=== PATIENT | male | born 1945 | race Hispanic/Latino ===

== ENCOUNTER 2021-12-21 12:26 | Inpatient (IN) | payer MEDICARE ==
[2021-12-21] MEDS ORDERED: levoFLOXacin 750 MG TAB PO ONE (14:00)
[2021-12-21] MEDS ORDERED: methylPREDNISolone Sod Succinate 125 MG/2 ML INJ IV ONE (14:00)
[2021-12-21] MEDS ORDERED: FUROSEMIDE 40 MG/4 ML INJ IV ONE (14:00)
--- NOTE | 2021-12-21 14:08 | Emergency Department Report ---
ED Shortness of Breath HPI - General Chief Complaint: Dyspnea/Respdistress Stated Complaint: DIFFICULTY BREATHING/COUGH Time Seen by Provider: 12/21/21 12:59 Source: patient, EMS Mode of arrival: Stretcher Limitations: Physical Limitation - History of Present Illness Initial Comments: 76 yo M with h/o CAD with CHF, a-fib and COPD with remote smoking history who now present with difficulty breathing for the last 7 days progressively getting worse. SOB is associated with yellowish productive cough. He also mentioned increase in his bilateral leg edema. No fever or chills or any other modifying or associated factors reported. - Related Data Allergies Allergy/AdvReac Type Severity Reaction Status Date / Time No Known Allergies Allergy Unverified 12/21/21 12:48 ED Review of Systems ROS: Stated complaint: DIFFICULTY BREATHING/COUGH Other details as noted in HPI Comment: All other systems reviewed and negative Respiratory: cough, shortness of breath, SOB at rest Cardiovascular: edema ED Past Medical Hx - Past Medical History Hx Hypertension: Yes Hx Congestive Heart Failure: Yes Hx Diabetes: Yes Additional medical history: a fib, hearing aid - Surgical History Hx Coronary Stent: Yes Hx Pacemaker: Yes Additional Surgical History: cataract, back - Social History Smoking Status: Never Smoker Substance Use Type: None ED Physical Exam - General Limitations: Physical Limitation General appearance: alert, in no apparent distress - Head Head exam: Present: atraumatic, normal inspection - Eye Eye exam: Present: normal appearance Pupils: Present: normal accommodation - ENT ENT exam: Present: normal exam, normal orophraynx, mucous membranes dry - Neck Neck exam: Present: normal inspection. Absent: tenderness - Respiratory Respiratory exam: Present: normal lung sounds bilaterally, wheezes, other (distance ). Absent: respiratory distress, chest wall tenderness, accessory muscle use - Cardiovascular Cardiovascular Exam: Present: regular rate, normal rhythm, normal heart sounds - GI/Abdominal GI/Abdominal exam: Present: soft, normal bowel sounds. Absent: distended, tenderness - Extremities Exam Extremities exam: Present: normal inspection, pedal edema (+2 bilaterally ). Absent: tenderness, calf tenderness - Back Exam Back exam: Absent: tenderness - Neurological Exam Neurological exam: Present: alert, oriented X3 - Psychiatric Psychiatric exam: Present: normal affect - Skin Skin exam: Present: warm, dry ED Course Vital Signs 12/21/21 12/21/21 12/21/21 12:32 12:54 14:47 Temperature 98.2 F 97.7 F Pulse Rate 60 60 Pulse Rate [ 69 Anterior Bilateral Throughout] Respiratory 20 22 Rate Respiratory 21 Rate [Anterior Bilateral Throughout] Blood Pressure 99/79 Blood Pressure 121/61 97/79 [Left] O2 Sat by Pulse 96 95 Oximetry 12/21/21 12/21/21 16:47 19:01 Temperature Pulse Rate 63 62 Pulse Rate [ Anterior Bilateral Throughout] Respiratory 20 27 H Rate Respiratory Rate [Anterior Bilateral Throughout] Blood Pressure 131/59 Blood Pressure 126/68 [Left] O2 Sat by Pulse 94 100 Oximetry ED Medical Decision Making - Lab Data Result diagrams: 12/21/21 15:05 12/21/21 15:05 - EKG Data -: EKG Interpreted by Me - EKG Data 12/21/21 14:18 Noted with ventricular paced rhythm at a rate of 60 s/p pacemaker - Medical Decision Making Here with shortness of breath--among differential diagnosis could be but not limited to acute exacerbation of COPD, myocardiac infarction, pulmonary embolism, acute exacerbation of asthma, pneumothorax, pneumonia or Viral or Manjinder terial Upper/Lower respiratory tract infection or other systemic infection.--To rule out the above will go ahead and order EKG, cardiac enzyme including troponin, BNP, CKMB, chest x-ray, CBC, CMP, UA and or D-dimer. In the meantime we will go ahead and treat with DuoNeb, 125 mg of Solu-Medrol, and will make a case for antibiotics Levaquin considering likely cause to be acute COPD exacerbation and continue to monitor the patient. Labs reviewed with elevated BNP 5113 with CXR vascular congestion and cardiomegaly -- pt continue to complaint of difficulty breath and couldn't even make a full sentence-- will go ahead and start BiPAP, and consider admission -- Dr Martínez consulted who accept patient for further evaluation and treatment Critical Care Time: Yes (60) Critical care time in (mins) excluding proc time.: 60 Critical care attestation.: If time is entered above; I have spent that time in minutes in the direct care of this critically ill patient, excluding procedure time. Brought in with difficulty breathing -noted with wheezing and likely with COPD and CHF exacerbation and started on BiPAP and due to high probability of clinically significant, life threatening deterioration, this patient required my highest level of preparedness to intervene emergently and I personally spent this critical care time directly and personally managing this patient. This critical care time included obtaining a history; examining this patient; pulse oximetry ; ordering and review of studies ; arranging urgent treatment with development of a management plan ; evaluation of patient's response to treatment ; frequent reassessment ; and, discussion with other providers. This critical care time was performed to assess and manage the high probability of imminent, life-threatening deterioration that could result in multiple organ damage if not done in a timely fashion. ED Disposition Clinical Impression: Dyspnea Qualifiers: Dyspnea type: unspecified Qualified Code(s): R06.00 - Dyspnea, unspecified CHF exacerbation Qualifiers: Heart failure type: unspecified Qualified Code(s): I50.9 - Heart failure, unspecified COPD (chronic obstructive pulmonary disease) Qualifiers: COPD type: unspecified COPD Qualified Code(s): J44.9 - Chronic obstructive pulmonary disease, unspecified Disposition: 09 ADMITTED INPATIENT Is pt being admited?: Yes Does the pt Need Aspirin: No Condition: Serious Time of Disposition: 18:57
--- NOTE | 2021-12-21 14:35 | XRay Report ---
CHEST 1 VIEW 12/21/2021 2:12 PM INDICATION / CLINICAL INFORMATION: Dyspnea. COMPARISON: None available. FINDINGS: SUPPORT DEVICES: Cardiac pacing device in position. HEART / MEDIASTINUM: Cardiomegaly.. Sternotomy and CABG. LUNGS / PLEURA: Mild/moderate interstitial opacities, perihilar predominant. Small left basilar effus ion. No pneumothorax. ADDITIONAL FINDINGS: No significant additional findings. IMPRESSION: 1. Imaging features most concerning for CHF with superimposed left-sided pleural effusion. 2. Cardiomegaly and postsurgical changes. Signer Name: Raquel Khan MD Signed: 12/21/2021 2:31 PM Workstation Name: [id number]
[2021-12-21] MEDS ORDERED: IPRATROPIUM/ALBUTEROL SULFATE 3 ML AMPUL.NEB IH ONE (15:00)
[2021-12-21 16:28] LABS: Alanine Aminotransferase 16 units/L (7-56); Albumin 3.7 g/dL (3.9-5); BUN/Creatinine Ratio 19; Blood Urea Nitrogen 21 mg/dL (9-20); Hemolysis Index 0
[2021-12-21 16:41] LABS: INR 1.42 (0.87-1.13)
[2021-12-21 16:42] LABS: Partial Thromboplastin Time 42.4 Sec. (24.2-36.6)
[2021-12-21 16:56] LABS: Color,Urine Yellow (Yellow)
[2021-12-21 17:00] LABS: Basophils % (Auto) 0.4 % (0.0-1.8); Eosinophils % (Auto) 0.1 % (0.0-4.3); Hematocrit 30.9 % (35.5-45.6); Hemoglobin 10.1 gm/dl (11.8-15.2); Lymphocytes # (Auto) 0.8 K/mm3 (1.2-5.4); Lymphocytes % (Auto) 8.9 % (13.4-35.0); Mean Corpuscular HGB Conc 33 % (32-34); Mean Corpuscular Volume 85 fl (84-94); Monocytes # (Auto) 0.8 K/mm3 (0.0-0.8); Monocytes % (Auto) 8.9 % (0.0-7.3); Platelet Count 239 K/mm3 (140-440); Red Blood Count 3.62 M/mm3 (3.65-5.03); Red Cell Distribution Width 18.1 % (13.2-15.2)
[2021-12-21 17:02] LABS: Bacteria,Urine 3+ /HPF (Negative); Mucus,Urine FEW /HPF
--- NOTE | 2021-12-21 18:49 | History and Physical Report ---
History of Present Illness Chief complaint: I am having problems breathing History of present illness: 76 YO Male with CHF, Atrial Fib, DM, HTN, CAD S/P Stent Placement, Hearing Impaired presents to ED for evaluation. Patient reports "I am having problems breathing". Patient states that he had experienced shortness of breath over the past 1 week with worsening symptoms over the past 3 to 4 days. Patient acknowledges decreased exercise tolerance, lower extremity edema, dyspnea on exertion, dyspnea at rest, orthopnea, paroxysmal nocturnal dyspnea, productive cough with mild amounts of yellowish sputum. EMS was notified and upon arrival the patient was found to be in respiratory distress and placed on supplemental oxygen and transported to [facility] for further care and evaluation of the aforementioned symptoms. The patient was seen and evaluated in the emergency department. All lab and imaging studies reviewed. Patient found to have a pulse oximetry of 86% on room air which is consistent with acute hypoxemic respiratory failure. Patient treated with supplemental oxygen with no significant improvement in symptoms. Patient was using accessory muscles to breathe, tripoding, and unable to speak complete sentences. Patient subsequent placed on noninvasive positive pressure ventilation in the emergency department with mild improvement in symptoms. Patient admitted to telemetry due to increased risk of worsening symptoms and for medical stabilization. Patient initiated on CHF protocol. Patient denies fever, chills, chest pain, palpitation, skin rash, recent contact, known exposure to COVID-19. No prior admission for review. No medication listed at time of admission for reconciliation. Advanced care planning conducted in ED. Past History Past Medical History: CAD, diabetes, heart failure, hypertension, other (See HPI) Past Surgical History: cataract removal Social history: , lives with family Family history: diabetes, hypertension Medications and Allergies Allergies Allergy/AdvReac Type Severity Reaction Status Date / Time No Known Allergies Allergy Unverified 12/21/21 12:48 Review of Systems Constitutional: weight gain, no weight loss, no fever, no chills Ears, nose, mouth and throat: no ear pain, no ear discharge, no nose pain, no nasal congestion, no sinus pressure Cardiovascular: orthopnea, shortness of breath, dyspnea on exertion, paroxysmal nocturnal dyspnea, high blood pressure, decreased exercise tolerance, no chest pain Respiratory: cough, cough with sputum, shortness of breath, no hemoptysis Gastrointestinal: no abdominal pain, no nausea, no vomiting, no diarrhea Genitourinary Male: no hematuria, no flank pain, no discharge, no urinary frequency, no urinary hesitancy Rectal: no pain, no incontinence, no bleeding Musculoskeletal: no neck stiffness, no neck pain, no shooting arm pain, no low back pain Integumentary: no rash, no pruritis, no redness, no sores, no wounds Neurological: no head injury, no transient paralysis, no weakness, no parathesias, no numbness, no seizures Psychiatric: no anxiety, no change in sleep habits, no sleep disturbances, no insomnia, no hypersomnia, no suicidal ideation Endocrine: no cold intolerance, no heat intolerance, no excessive thirst, no polydipsia, no nocturia, no excessive sweating Hematologic/Lymphatic: no easy bruising, no easy bleeding Allergic/Immunologic: no urticaria, no wheezing Exam - Constitutional Vitals: Temp Pulse Resp BP Pulse Ox 97.7 F 63 20 126/68 94 12/21/21 12:54 12/21/21 16:47 12/21/21 16:47 12/21/21 16:47 12/21/21 16:47 General appearance: Present: mild distress - EENT Eyes: Present: PERRL ENT: hearing intact, clear oral mucosa - Neck Neck: Present: supple, normal ROM, masses or JVD - Respiratory Respiratory effort: labored, accessory muscle use Respiratory: bilateral: diminished, rales - Cardiovascular Rhythm: irregularly irregular Heart Sounds: Present: S1 & S2. Absent: rub, click - Extremities Extremities: no ischemia, pulses symmetrical Extremity abnormal: edema Peripheral Pulses: within normal limits - Abdominal General gastrointestinal: Present: soft, non-tender, non-distended, normal bowel sounds Male genitourinary: Present: normal - Integumentary Integumentary: Present: clear, warm, dry - Musculoskeletal Musculoskeletal: gait normal, strength equal bilaterally - Psychiatric Psychiatric: appropriate mood/affect, intact judgment & insight - Neurologic Neurologic: CNII-XII intact, moves all extremities HEART Score - HEART Score Troponin: Troponin T 0.018 ng/mL (0.00-0.029) 12/21/21 15:05 Results - Labs CBC & Chem 7: 12/21/21 15:05 12/21/21 15:05 Labs: Abnormal lab results 12/21/21 12/21/21 12/21/21 Range/Units 15:05 15:05 15:05 RBC 3.62 L (3.65-5.03) M/mm3 Hgb 10.1 L (11.8-15.2) gm/dl Hct 30.9 L (35.5-45.6) % RDW 18.1 H (13.2-15.2) % Lymph % (Auto) 8.9 L (13.4-35.0) % [place] % (Auto) 8.9 H (0.0-7.3) % Lymph # (Auto) 0.8 L (1.2-5.4) K/mm3 Seg Neutrophils % 81.7 H (40.0-70.0) % PT 19.1 H (12.2-14.9) Sec. INR 1.42 H (0.87-1.13) APTT 42.4 H (24.2-36.6) Sec. BUN 21 H (9-20) mg/dL Glucose 129 H (75-100) mg/dL NT-Pro-B Natriuret Pep (0-900) pg/mL Total Protein 6.1 L (6.3-8.2) g/dL Albumin 3.7 L (3.9-5) g/dL Urine WBC (Auto) (0.0-6.0) /HPF 12/21/21 12/21/21 Range/Units 15:05 15:06 RBC (3.65-5.03) M/mm3 Hgb (11.8-15.2) gm/dl Hct (35.5-45.6) % RDW (13.2-15.2) % Lymph % (Auto) (13.4-35.0) % [place] % (Auto) (0.0-7.3) % Lymph # (Auto) (1.2-5.4) K/mm3 Seg Neutrophils % (40.0-70.0) % PT (12.2-14.9) Sec. INR (0.87-1.13) APTT (24.2-36.6) Sec. BUN (9-20) mg/dL Glucose (75-100) mg/dL NT-Pro-B Natriuret Pep 5113 H (0-900) pg/mL Total Protein (6.3-8.2) g/dL Albumin (3.9-5) g/dL Urine WBC (Auto) 46.0 H (0.0-6.0) /HPF Assessment and Plan - Patient Problems (1) Acute hypoxemic respiratory failure Current Visit: Yes Status: Acute Plan to address problem: Chest x-ray, supplemental oxygen, pulse oximetry, nebulizer therapy, noninvasive positive pressure ventilation, arterial blood gas. (2) CHF (congestive heart failure) Current Visit: Yes Status: Acute Qualifiers: Heart failure type: systolic Heart failure chronicity: acute on chronic Qualified Code(s): I50.23 - Acute on chronic systolic (congestive) heart failure Plan to address problem: Strict I's/O, monitor urine output every shift, daily weight, afterload reduction, blood pressure control, cardiology team consulted, echocardiogram ordered and pending at time of admission, thyroid panel, magnesium level, supplemental oxygen, pulse oximetry. (3) UTI (urinary tract infection) Current Visit: Yes Status: Acute Qualifiers: Encounter type: initial encounter Plan to address problem: Urinalysis, IV antibiotic therapy. (4) Recurrent left pleural effusion Current Visit: Yes Status: Acute Plan to address problem: Diuresis, supplemental oxygen, pulse oximetry, pulmonary toilet. Repeat chest x-ray in a.m. as clinically indicated. (5) Vascular dementia Current Visit: Yes Status: Acute Qualifiers: Dementia behavioral disturbance: without behavioral disturbance Qualified Code(s): F01.50 - Vascular dementia without behavioral disturbance Plan to address problem: Verbal prompting, verbal redirection, benzodiazepine therapy as clinically indicated. (6) Cerebral atherosclerosis Current Visit: Yes Status: Acute Plan to address problem: Risk factor reduction, antiplatelet therapy as clinically indicated. (7) Hypertension Current Visit: Yes Status: Acute Qualifiers: Hypertension type: primary hypertension Qualified Code(s): I10 - Essential (primary) hypertension Plan to address problem: Monitor blood pressure every shift, continue medical management. (8) Diabetes Current Visit: Yes Status: Acute Plan to address problem: Consistent carbohydrate diet, Accu-Chek, insulin protocol, consistent carbohydrate diet, hypoglycemia protocol. (9) Coronary artery disease Current Visit: Yes Status: Acute Qualifiers: Associated angina: without angina Plan to address problem: Risk factor reduction, supportive care, continue medical management. (10) Atrial fibrillation Current Visit: Yes Status: Acute Plan to address problem: Rate currently controlled. Continue medical management as per cardiology team. Cardiology team consulted. (11) DVT prophylaxis Current Visit: Yes Status: Acute Plan to address problem: SCDs bilateral lower extremities while in bed (12) Advance care planning Current Visit: Yes Status: Acute Plan to address problem: Disease education conducted, care plan discussed, diagnoses discussed, prognosis discussed, patient acknowledges understanding agreement care plan, +30 minutes. (13) Preventative health care Current Visit: Yes Status: Acute Plan to address problem: Patient counseled regarding risk factor reduction, low-cholesterol diet, outpatient follow-up with primary care physician for all age and risk factor appropriate screening test. +30 minutes.
[2021-12-21] MEDS ORDERED: HYDROmorphone 0.5 MG/0.5 ML INJ IV PRN (18:52)
[2021-12-21] MEDS ORDERED: oxyCODONE /ACETAMINOPHEN 5-325MG TAB PO PRN (18:52)
[2021-12-21] MEDS ORDERED: ONDANSETRON 4 MG/2 ML INJ IV PRN (18:52)
[2021-12-21] MEDS: cefTRIAXone/NS 1 GM/50 ML 1 GM/50 ML BAG IV SCH (20:00)
[2021-12-21 20:20] LABS: Free T4 (Free Thyroxine) 1.84 ng/dL (0.76-1.46)
[2021-12-21] MEDS: guaiFENesin DM 200/20 MG ORAL LIQD 10 ML PO PRN (23:46)
[2021-12-21] MEDS: traZODone 100 MG TAB PO PRN (23:46)
[2021-12-22] MEDS: INSULIN LISPRO 100 UNIT/ML SUB-Q SCH ×5 (00:04→21:52)
[2021-12-22] MEDS: ALBUTEROL 2.5 MG/3 ML NEBU IH SCH ×4 (00:51→21:27)
[2021-12-22] MEDS ORDERED: FUROSEMIDE 20 MG/2 ML INJ IV SCH (06:00)
[2021-12-22 06:27] LABS: ABG Base Excess 0.2 mmol/L (-2.0-3.0); ABG HCO3 23.7 mmol/L (20.0-26.0); ABG Methemoglobin 0.5 % (0.0-1.5); ABG Oxygen Saturation 98.7 % (95.0-99.0); ABG PCO2 33.8 mm Hg; ABG PH 7.463 pH Units (7.350-7.450); ABG PO2 130.7 mm Hg (80.0-90.0)
[2021-12-22 06:39] LABS: BUN/Creatinine Ratio 20; Blood Urea Nitrogen 22 mg/dL (9-20); Calcium 8.5 mg/dL (8.4-10.2); Hemolysis Index 6
[2021-12-22] MEDS ORDERED: INSULIN LISPRO 100 UNIT/ML SUB-Q SCH (07:30)
[2021-12-22] MEDS: cefTRIAXone/NS 1 GM/50 ML 1 GM/50 ML BAG IV SCH (09:23)
--- NOTE | 2021-12-22 12:46 | Progress Note ---
Assessment and Plan -- Acute hypoxemic respiratory failure Likely due to seasonal admission, supplemental oxygen, pulse oximetry, nebulizer therapy, noninvasive positive pressure ventilation, arterial blood gas to monitor. --Acute on chronic diastolic CHF (congestive heart failure) Strict I's/O, monitor urine output every shift, daily weight, afterload re duction, blood pressure control, cardiology team consulted, echocardiogram ordered and pending at time of admission, thyroid panel, magnesium level, supplemental oxygen, pulse oximetry. Cardiology consulted -- UTI (urinary tract infection) Urinalysis, IV antibiotic therapy. -- Recurrent left pleural effusion Diuresis, supplemental oxygen, pulse oximetry, pulmonary toilet. Repeat chest x-ray as clinically indicated. If no improvement with diuresis, would then need thoracentesis --Nonrheumatic mitral valve regurgitation He had an echo at [facility] in October 2021 which showed moderate to severe MR and severe TR with severe pulmonary hypertension. Given his severe pulmonary hypertension he may or may not be a candidate for surgery. Will need to optimize his volume status. -- Nonrheumatic tricuspid (valve) insufficiency Tricuspid regurgitation is severe. Continue managing heart failure which may improve his severity. Per cardiology will need approach with CT surgery evaluation. The goal is to optimize his heart failure as to close to euvolemic and then refer him for heart team approach to evaluate and fix his mitral and tricuspid valve as outpatient. 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 -- Diabetes Consistent carbohydrate diet, Accu-Chek, insulin protocol, consistent carbohydrate diet, hypoglycemia protocol. --DVT Px, lovenox --12/22: cont diuresis, monitor ins/os, cardiology consulted will follow recommendation. cardiac diet. Subjective Date of service: 12/22/21 Interval history: Patient seen and examined. Medical records and medication list reviewed. No acute event overnight noted by the RN. Patient c/o difficulty breathing. las extensive b/l LE swelling Patient is tolerating diet. c/o cough Discussed plan of care at bedside with patient. Objective - Exam Narrative Exam: GENERAL: well-developed obese white male sitting on bed appeared to be in no discomfort. HEENT: Normocephalic. Atraumatic. No conjunctival congestion or icterus. Patient has moist mucous membranes. NECK: Supple. Trachea midline. CHEST/LUNGS: Few crackles auscultated bilaterally, breathing nonlabored. HEART/CARDIOVASCULAR: Regular in rate and rhythm. S1 and S2 positive. ABDOMEN: Abdomen is soft, nontender. Patient has normal bowel sounds. SKIN: There is no rash. Warm and dry. NEURO: No focal motor deficit. Follows command. MUSCULOSKELETAL: No joint effusion or tenderness. EXTRIMITY: 3+ve edema, no cyanosis or clubbing. PSYCH: Cooperative. - Constitutional Vitals: Vital Signs - 12hr 12/22/21 12/22/21 12/22/21 00:50 01:25 02:22 Temperature Pulse Rate Pulse Rate [ 93 H Anterior Bilateral Throughout] Respiratory 20 Rate Respiratory 16 Rate [Anterior Bilateral Throughout] Blood Pressure O2 Sat by Pulse 97 96 Oximetry 12/22/21 12/22/21 12/22/21 03:50 04:18 08:09 Temperature 98.4 F 98.2 F Pulse Rate 67 60 60 Pulse Rate [ Anterior Bilateral Throughout] Respiratory 20 16 Rate Respiratory Rate [Anterior Bilateral Throughout] Blood Pressure 126/37 114/44 O2 Sat by Pulse 97 99 Oximetry 12/22/21 10:12 Temperature Pulse Rate Pulse Rate [ 61 Anterior Bilateral Throughout] Respiratory Rate Respiratory 18 Rate [Anterior Bilateral Throughout] Blood Pressure O2 Sat by Pulse Oximetry - Labs CBC & Chem 7: 12/21/21 15:05 12/23/21 05:09 Labs: Abnormal lab results 12/21/21 12/21/21 12/21/21 Range/Units 15:05 15:05 15:05 RBC 3.62 L (3.65-5.03) M/mm3 Hgb 10.1 L (11.8-15.2) gm/dl Hct 30.9 L (35.5-45.6) % RDW 18.1 H (13.2-15.2) % Lymph % (Auto) 8.9 L (13.4-35.0) % [place] % (Auto) 8.9 H (0.0-7.3) % Lymph # (Auto) 0.8 L (1.2-5.4) K/mm3 Seg Neutrophils % 81.7 H (40.0-70.0) % PT 19.1 H (12.2-14.9) Sec. INR 1.42 H (0.87-1.13) APTT 42.4 H (24.2-36.6) Sec. ABG pH (7.350-7.450) pH Units ABG pO2 (80.0-90.0) mm Hg ABG Hemoglobin (14.0-18.0) gm/dl BUN 21 H (9-20) mg/dL Glucose 129 H (75-100) mg/dL POC Glucose (70-105) mg/dL NT-Pro-B Natriuret Pep (0-900) pg/mL Total Protein 6.1 L (6.3-8.2) g/dL Albumin 3.7 L (3.9-5) g/dL Free T4 (0.76-1.46) ng/dL Urine WBC (Auto) (0.0-6.0) /HPF 12/21/21 12/21/21 12/21/21 Range/Units 15:05 15:06 19:14 RBC (3.65-5.03) M/mm3 Hgb (11.8-15.2) gm/dl Hct (35.5-45.6) % RDW (13.2-15.2) % Lymph % (Auto) (13.4-35.0) % [place] % (Auto) (0.0-7.3) % Lymph # (Auto) (1.2-5.4) K/mm3 Seg Neutrophils % (40.0-70.0) % PT (12.2-14.9) Sec. INR (0.87-1.13) APTT (24.2-36.6) Sec. ABG pH (7.350-7.450) pH Units ABG pO2 (80.0-90.0) mm Hg ABG Hemoglobin (14.0-18.0) gm/dl BUN (9-20) mg/dL Glucose (75-100) mg/dL POC Glucose (70-105) mg/dL NT-Pro-B Natriuret Pep 5113 H (0-900) pg/mL Total Protein (6.3-8.2) g/dL Albumin (3.9-5) g/dL Free T4 1.84 H (0.76-1.46) ng/dL Urine WBC (Auto) 46.0 H (0.0-6.0) /HPF 12/21/21 12/22/2112/22/22 Range/Units 22:16 05:51 06:05 RBC (3.65-5.03) M/mm3 Hgb (11.8-15.2) gm/dl Hct (35.5-45.6) % RDW (13.2-15.2) % Lymph % (Auto) (13.4-35.0) % [place] % (Auto) (0.0-7.3) % Lymph # (Auto) (1.2-5.4) K/mm3 Seg Neutrophils % (40.0-70.0) % PT (12.2-14.9) Sec. INR (0.87-1.13) APTT (24.2-36.6) Sec. ABG pH 7.463 H (7.350-7.450) pH Units ABG pO2 130.7 H (80.0-90.0) mm Hg ABG Hemoglobin 9.2 L (14.0-18.0) gm/dl BUN 22 H (9-20) mg/dL Glucose 127 H (75-100) mg/dL POC Glucose 233 H (70-105) mg/dL NT-Pro-B Natriuret Pep (0-900) pg/mL Total Protein (6.3-8.2) g/dL Albumin (3.9-5) g/dL Free T4 (0.76-1.46) ng/dL Urine WBC (Auto) (0.0-6.0) /HPF 12/22/21 Range/Units 08:09 RBC (3.65-5.03) M/mm3 Hgb (11.8-15.2) gm/dl Hct (35.5-45.6) % RDW (13.2-15.2) % Lymph % (Auto) (13.4-35.0) % [place] % (Auto) (0.0-7.3) % Lymph # (Auto) (1.2-5.4) K/mm3 Seg Neutrophils % (40.0-70.0) % PT (12.2-14.9) Sec. INR (0.87-1.13) APTT (24.2-36.6) Sec. ABG pH (7.350-7.450) pH Units ABG pO2 (80.0-90.0) mm Hg ABG Hemoglobin (14.0-18.0) gm/dl BUN (9-20) mg/dL Glucose (75-100) mg/dL POC Glucose 123 H (70-105) mg/dL NT-Pro-B Natriuret Pep (0-900) pg/mL Total Protein (6.3-8.2) g/dL Albumin (3.9-5) g/dL Free T4 (0.76-1.46) ng/dL Urine WBC (Auto) (0.0-6.0) /HPF HEART Score - HEART Score Troponin: Troponin T 0.018 ng/mL (0.00-0.029) 12/21/21 15:05
[2021-12-22] MEDS: guaiFENesin DM 200/20 MG ORAL LIQD 10 ML PO PRN (12:54)
[2021-12-22] MEDS: FUROSEMIDE 20 MG/2 ML INJ IV SCH ×2 (13:58→19:24)
--- NOTE | 2021-12-22 15:07 | Progress Note ---
Subjective Date of service: 12/22/21 Interval history: CONSULT DICTATED CHF - SEVERE MR & TR NOTED ON ECHO WITH PULM. HTN Objective Vital Signs Temp Pulse Pulse Resp Resp BP BP 12/22/21 11:32 98.6 F 65 18 133/45 12/22/21 10:12 61 18 12/22/21 08:09 98.2 F 60 16 114/44 12/22/21 04:18 60 12/22/21 03:50 98.4 F 67 20 126/37 12/22/21 02:22 12/22/21 01:25 20 12/22/21 00:50 93 H 16 12/22/21 00:07 60 12/21/21 22:39 98.0 F 18 116/47 12/21/21 21:27 60 12/21/21 20:00 98 F 62 20 132/78 12/21/21 19:01 62 27 H 131/59 12/21/21 16:47 63 20 126/68 Pulse Ox 12/22/21 11:32 96 12/22/21 10:12 12/22/21 08:09 99 12/22/21 04:18 12/22/21 03:50 97 12/22/21 02:22 96 12/22/21 01:25 97 12/22/21 00:50 12/22/21 00:07 12/21/21 22:39 12/21/21 21:27 12/21/21 20:00 100 12/21/21 19:01 100 12/21/21 16:47 94 - Labs and Meds Cardiac Enzymes 12/21/21 Range/Units 15:05 AST 32 (5-40) units/L Coagulation 12/21/21 Range/Units 15:05 PT 19.1 H (12.2-14.9) Sec. INR 1.42 H (0.87-1.13) APTT 42.4 H (24.2-36.6) Sec. CBC 12/21/21 Range/Units 15:05 WBC 9.3 (4.5-11.0) K/mm3 RBC 3.62 L (3.65-5.03) M/mm3 Hgb 10.1 L (11.8-15.2) gm/dl Hct 30.9 L (35.5-45.6) % Plt Count 239 (140-440) K/mm3 Lymph # (Auto) 0.8 L (1.2-5.4) K/mm3 [place] # (Auto) 0.8 (0.0-0.8) K/mm3 Eos # (Auto) 0.0 (0.0-0.4) K/mm3 Baso # (Auto) 0.0 (0.0-0.1) K/mm3 Comprehensive Metabolic Panel 12/21/21 12/22/21 Range/Units 15:05 05:51 Sodium 139 138 (137-145) mmol/L Potassium 4.0 3.7 (3.6-5.0) mmol/L Chloride 100.3 102.2 (98-107) mmol/L Carbon Dioxide 22 24 (22-30) mmol/L BUN 21 H 22 H (9-20) mg/dL Creatinine 1.1 1.1 (0.8-1.3) mg/dL Glucose 129 H 127 H (75-100) mg/dL Calcium 9.0 8.5 (8.4-10.2) mg/dL AST 32 (5-40) units/L ALT 16 (7-56) units/L Alkaline Phosphatase 52 (35-129) units/L Total Protein 6.1 L (6.3-8.2) g/dL Albumin 3.7 L (3.9-5) g/dL
[2021-12-22] MEDS: LISINOPRIL 5 MG TAB PO SCH (16:27)
[2021-12-22] MEDS: ACETAMINOPHEN 325 MG TAB PO PRN (19:29)
[2021-12-22] MEDS: traZODone 100 MG TAB PO PRN (23:09)
--- NOTE | 2021-12-23 00:04 | Consultation ---
DATE OF CONSULTATION: 12/22/2021 HISTORY OF PRESENT ILLNESS: The patient is a 76-year-old male, known to our office with a history of bypass surgery, coronary disease and stent placement, hypertension, diabetes, atrial fibrillation, heart failure and possibly COPD, who has been developing shortness of breath and swelling over the past 1 week. He does not monitor his fluid intake, his blood pressure or his weight. He is in assisted living now. There has been no chest pain or palpitations. He has a remote history of smoking. He said he has had congestive heart failure in the past, maybe a month ago. When he went to the grocery store yesterday, he used a motorized cart. He did not describe any clearcut peripheral vascular disease, GROUP EXERCISE INSTRUCTOR disease. He does have insomnia. He also has a pacemaker. PAST HISTORY: ALLERGIES: None. MEDICATIONS: See the nurse's list. PREVIOUS SURGERY: Coronary artery bypass surgery about 20 years ago, cataract surgery. FAMILY HISTORY: Diabetes and hypertension. ALCOHOL: No heavy use. REVIEW OF SYSTEMS: He describes weight gain. No fever or chills. There has been some sputum production. He does not give any clear history of sleep apnea. He describes UTI recently. He has been compliant with medications. He did not describe any strokes, anxiety or depression. PHYSICAL EXAMINATION: GENERAL: Well-developed, well-nourished, no acute distress. Alert, oriented, cooperative. Mental status normal. EYES, NOSE AND THROAT: Unremarkable. NECK: Reveals JVD. There are no bruits. Neck is supple, no masses. LUNGS: Diminished breath sounds. HEART: Regular rhythm with a grade 3 systolic murmur. ABDOMEN: Soft, nontender, no masses. Bowel sounds intact. There is evidence of ascites. EXTREMITIES: No cyanosis or clubbing. There is 3+ pitting edema. Limbs are warm. Peripheral pulses are intact, but diminished. NEUROLOGIC: Symmetrical. SKIN: Clear. IMPRESSION: 1. Recurrence of diastolic heart failure: Improving, it sounds as if he is not completely compliant with dietary restrictions or weights. 2. History of coronary artery bypass surgery: Stable, known to Dr. Baker. 3. History of atrial fibrillation. 4. History of chronic obstructive pulmonary disease. 5. History of diabetes. 6. Permanent pacemaker placement. 7. Insomnia: Consider sleep apnea. 8. Anemia. 9. Echocardiography revealed severe mitral and tricuspid regurgitation with pulmonary hypertension. PLAN: Treat for congestive heart failure. Consider transfer to [facility] for evaluation by the valvular heart disease team, review previous workups in the office and on the previous hospitalization. Discussed the importance of blood pressure checks, weights and dietary restrictions. Thank you for this consultation. We will follow the patient. TID: [id number] RECEIPT: [id number] MICHELE/TRISTAN
[2021-12-23] MEDS: guaiFENesin DM 200/20 MG ORAL LIQD 10 ML PO PRN ×4 (02:57→23:09)
[2021-12-23] MEDS: FUROSEMIDE 20 MG/2 ML INJ IV SCH (06:00)
[2021-12-23 07:35] LABS: BUN/Creatinine Ratio 24; Blood Urea Nitrogen 26 mg/dL (9-20); Hemolysis Index 0
[2021-12-23] MEDS: INSULIN LISPRO 100 UNIT/ML SUB-Q SCH ×4 (09:39→21:36)
[2021-12-23] MEDS: cefTRIAXone/NS 1 GM/50 ML 1 GM/50 ML BAG IV SCH (09:40)
[2021-12-23] MEDS: LISINOPRIL 5 MG TAB PO SCH (09:41)
[2021-12-23] MEDS: ALBUTEROL 2.5 MG/3 ML NEBU IH SCH ×3 (09:57→22:17)
--- NOTE | 2021-12-23 10:00 | Progress Note ---
Assessment and Plan - Patient Problems (1) Diastolic CHF, acute on chronic Current Visit: Yes Status: Acute Plan to address problem: Patient likely in heart failure secondary to his valvular abnormalities and pulmonary hypertension. He still appears to be volume overloaded. We have will give an additional dose of Lasix today to help with diuresis. The goal is to optimize his heart failure as to close to euvolemic and then refer him for heart team approach to evaluate and fix his mitral and tricuspid valve as outpatient. (2) Nonrheumatic mitral valve regurgitation Current Visit: Yes Status: Acute Plan to address problem: Patient has severe mitral regurgitation which it appears to be posteriorly directed., unclear if primary or secondary based on transthoracic echo. No obvious flail or prolapse of the mitral leaflets. He had an echo at [place] in October 2021 which showed moderate to severe MR and severe TR with severe pulmonary hypertension. Given his severe pulmonary hypertension he may or may not be a candidate for surgery. Will need to optimize his volume status. (3) Nonrheumatic tricuspid (valve) insufficiency Current Visit: Yes Status: Acute Plan to address problem: Tricuspid regurgitation is severe. Continue managing heart failure which may improve his severity. We will need heart to approach with CT surgery evaluation (4) Pulmonary hypertension Current Visit: Yes Status: Acute Subjective Date of service: 12/23/21 Interval history: Patient still has shortness of breath. He was coughing a lot while speaking. Denies any chest pain orthopnea or PND. He has mild leg swelling Objective Vital Signs Temp Pulse Pulse Resp Resp BP Pulse Ox 12/23/21 09:41 60 109/47 12/23/21 07:54 98.6 F 60 109/47 99 12/23/21 05:00 60 12/23/21 03:45 98.2 F 60 18 108/46 98 12/23/21 01:00 20 96 12/23/21 00:04 98.0 F 71 18 107/38 95 12/22/21 21:31 98 12/22/21 21:30 63 20 12/22/21 21:00 60 12/22/21 19:39 98.0 F 71 18 105/45 99 12/22/21 17:04 61 18 12/22/21 15:48 98.4 F 60 18 132/67 100 12/22/21 13:00 60 20 96 09/18/22 11:32 98.6 F 65 18 133/45 96 12/22/21 10:12 61 18 - Physical Examination General: No Apparent Distress HEENT: Positive: PERRL Neck: Positive: neck supple Cardiac: Positive: Reg Rate and Rhythm, S1/S2 Lungs: Positive: Other (Faint crackles) Neuro: Positive: Grossly Intact Abdomen: Positive: Soft Extremities: Present: +1 Edema - Labs and Meds Comprehensive Metabolic Panel 12/23/21 Range/Units 05:09 Sodium 139 (137-145) mmol/L Potassium 3.8 (3.6-5.0) mmol/L Chloride 101.5 (98-107) mmol/L Carbon Dioxide 26 (22-30) mmol/L BUN 26 H (9-20) mg/dL Creatinine 1.1 (0.8-1.3) mg/dL Glucose 89 (75-100) mg/dL Calcium 9.0 (8.4-10.2) mg/dL - Telemetry EKG Rhythm: Sinus Rhythm
[2021-12-23] MEDS ORDERED: TRAZODONE HCL 150 MG PO SCH (10:45)
[2021-12-23] MEDS ORDERED: NON-FORMULARY EACH (Apixaban 5 MG Tablet) PO SCH (10:45)
[2021-12-23] MEDS ORDERED: FENOFIBRIC ACID 135 MG PO SCH (10:45)
[2021-12-23] MEDS ORDERED: OMEPRAZOLE 40 MG PO SCH (10:45)
[2021-12-23] MEDS ORDERED: POTASSIUM CHLORIDE 20 MEQ PO SCH (10:45)
[2021-12-23] MEDS ORDERED: ATORVASTATIN 10 MG PO SCH (10:45)
[2021-12-23] MEDS ORDERED: FUROSEMIDE 40 MG/4 ML INJ IV ONE (11:00)
[2021-12-23] MEDS ORDERED: FUROSEMIDE 100 MG/10 ML INJ IV NR (11:00)
[2021-12-23] MEDS: POTASSIUM CHLORIDE ER 20 MEQ TAB PO SCH (11:12)
[2021-12-23] MEDS: TAMSULOSIN 0.4 MG CAP PO SCH (11:12)
[2021-12-23] MEDS: DIGOXIN 0.125 MG TAB PO SCH (11:12)
[2021-12-23] MEDS: FLUoxetine 20 MG CAP PO SCH (11:12)
[2021-12-23] MEDS: PANTOPRAZOLE 40 MG TAB PO SCH (11:13)
[2021-12-23] MEDS: FERROUS SULFATE 325 MG TAB PO SCH (11:13)
[2021-12-23] MEDS ORDERED: CHOLECALCIFEROL (VIT D3) 1000 UNIT (25 mcg) TAB PO SCH (11:30)
[2021-12-23] MEDS: APIXABAN 5 MG TAB PO SCH ×2 (12:02→21:35)
[2021-12-23] MEDS: FUROSEMIDE 40 MG TAB PO SCH ×2 (14:37→21:36)
--- NOTE | 2021-12-23 14:50 | Progress Note ---
Assessment and Plan -- Acute hypoxemic respiratory failure Likely due to seasonal admission, supplemental oxygen, pulse oximetry, nebulizer therapy, noninvasive positive pressure ventilation, arterial blood gas to monitor. --Acute on chronic diastolic CHF (congestive heart failure) Strict I's/O, monitor urine output every shift, daily weight, afterload re duction, blood pressure control, cardiology team consulted, echocardiogram ordered and pending at time of admission, thyroid panel, magnesium level, supplemental oxygen, pulse oximetry. Cardiology consulted -- UTI (urinary tract infection) Urinalysis, IV antibiotic therapy. -- Recurrent left pleural effusion Diuresis, supplemental oxygen, pulse oximetry, pulmonary toilet. Repeat chest x-ray as clinically indicated. If no improvement with diuresis, would then need thoracentesis --Nonrheumatic mitral valve regurgitation He had an echo at [place] in October 2021 which showed moderate to severe MR and severe TR with severe pulmonary hypertension. Given his severe pulmonary hypertension he may or may not be a candidate for surgery. Will need to optimize his volume status. -- Nonrheumatic tricuspid (valve) insufficiency Tricuspid regurgitation is severe. Continue managing heart failure which may improve his severity. Per cardiology will need approach with CT surgery evaluation. The goal is to optimize his heart failure as to close to euvolemic and then refer him for heart team approach to evaluate and fix his mitral and tricuspid valve as outpatient. 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 -- Diabetes Consistent carbohydrate diet, Accu-Chek, insulin protocol, consistent carbohydrate diet, hypoglycemia protocol. --DVT Px, lovenox --12/22: cont diuresis, monitor ins/os, cardiology consulted will follow recommendation. cardiac diet. --12/23: clinically slightly improved, still has sig LE edema, follow CXR. if no improvement in pleural effusion need thoracentesis Subjective Date of service: 12/23/21 Interval history: Patient seen and examined. Medical records and medication list reviewed. No acute event overnight noted by the RN. Patient c/o difficulty breathing. las extensive b/l LE swelling Patient is tolerating diet. Discussed plan of care at bedside with patient. Objective - Exam Narrative Exam: GENERAL: well-developed obese white male sitting on bed appeared to be in no discomfort. HEENT: Normocephalic. Atraumatic. No conjunctival congestion or icterus. Patient has moist mucous membranes. NECK: Supple. Trachea midline. CHEST/LUNGS: Few crackles auscultated bilaterally, breathing nonlabored. HEART/CARDIOVASCULAR: Regular in rate and rhythm. S1 and S2 positive. ABDOMEN: Abdomen is soft, nontender. Patient has normal bowel sounds. SKIN: There is no rash. Warm and dry. NEURO: No focal motor deficit. Follows command. MUSCULOSKELETAL: No joint effusion or tenderness. EXTRIMITY: 3+ve edema, no cyanosis or clubbing. PSYCH: Cooperative. - Constitutional Vitals: Vital Signs - 12hr 12/23/21 12/23/21 12/23/21 03:45 05:00 07:54 Temperature 98.2 F 98.6 F Pulse Rate 60 60 60 Respiratory 18 Rate Blood Pressure 108/46 109/47 O2 Sat by Pulse 98 99 Oximetry 12/23/21 12/23/21 12/23/21 09:41 11:12 11:40 Temperature 98.2 F Pulse Rate 60 60 60 Respiratory Rate Blood Pressure 109/47 119/56 O2 Sat by Pulse 90 Oximetry 12/23/21 13:00 Temperature Pulse Rate 60 Respiratory 20 Rate Blood Pressure O2 Sat by Pulse 96 Oximetry - Labs CBC & Chem 7: 12/21/21 15:05 12/23/21 05:09 Labs: Abnormal lab results 12/22/21 12/23/21 12/23/21 Range/Units 20:25 05:09 11:39 BUN 26 H (9-20) mg/dL POC Glucose 146 H 119 H (70-105) mg/dL HEART Score - HEART Score Troponin: Troponin T 0.018 ng/mL (0.00-0.029) 12/21/21 15:05
[2021-12-23] MEDS: traZODone 50 MG TAB PO SCH (21:35)
[2021-12-23] MEDS: guaiFENesin ER 600 MG TAB PO SCH (21:35)
[2021-12-23] MEDS: traZODone 100 MG TAB PO SCH (21:35)
[2021-12-24] MEDS: LEVOTHYROXINE 150 MCG TAB PO SCH (05:49)
[2021-12-24] MEDS: INSULIN LISPRO 100 UNIT/ML SUB-Q SCH ×4 (08:30→22:32)
--- NOTE | 2021-12-24 09:17 | Progress Note ---
Assessment and Plan Assessment and plan: -- Acute hypoxemic respiratory failure Likely due to seasonal admission, supplemental oxygen, pulse oximetry, nebulizer therapy, noninvasive positive pressure ventilation, arterial blood gas to monitor. --Acute on chronic diastolic CHF (congestive heart failure) Strict I's/O, monitor urine output every shift, daily weight, afterload reduction, blood pressure control, cardiology team consulted, echocardiogram ordered and pending at time of admission, thyroid panel, magnesium level, supplemental oxygen, pulse oximetry. Cardiology consulted -- UTI (urinary tract infection) Urinalysis, IV antibiotic therapy. -- Recurrent left pleural effusion Diuresis, supplemental oxygen, pulse oximetry, pulmonary toilet. Repeat chest x-ray as clinically indicated. If no improvement with diuresis, would then need thoracentesis --Nonrheumatic mitral valve regurgitation He had an echo at [place] in October 2021 which showed moderate to severe MR and severe TR with severe pulmonary hypertension. Given his severe pulmonary hypertension he may or may not be a candidate for surgery. Will need to optimize his volume status. -- Nonrheumatic tricuspid (valve) insufficiency Tricuspid regurgitation is severe. Continue managing heart failure which may improve his severity. Per cardiology will need approach with CT surgery evaluation. The goal is to optimize his heart failure as to close to euvolemic and then refer him for heart team approach to evaluate and fix his mitral and tricuspid valve as outpatient. 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 -- Diabetes Consistent carbohydrate diet, Accu-Chek, insulin protocol, consistent carbohydrate diet, hypoglycemia protocol. --DVT Px, lovenox --12/22: cont diuresis, monitor ins/os, cardiology consulted will follow recommendation. cardiac diet. --12/23: clinically slightly improved, still has sig LE edema, follow CXR. if no improvement in pleural effusion need thoracentesis --12/24; will check ultrasound of the chest, and possible ultrasound-guided thoracentesis tomorrow if needed Closely monitor the patient and adjust the management as needed Plan of care reviewed with the patient and his nurse History Interval history: I have seen and examined the patient at the bedside Patient's chart and medications reviewed No new events reported by the nursing Patient feels slightly better Vital signs noted Hospitalist Physical - Constitutional Vitals: Temp Pulse Resp BP Pulse Ox 97.6 F 67 19 114/53 95 12/24/21 04:36 12/24/21 05:00 12/24/21 04:36 12/24/21 04:36 12/24/21 04:36 General appearance: Present: mild distress, well-nourished, obese - EENT Eyes: Present: PERRL, EOM intact - Neck Neck: Present: supple, normal ROM - Respiratory Respiratory effort: normal Respiratory: left: diminished (Left more than right), bilateral: rales, negative: rhonchi, wheezing - Cardiovascular Rhythm: regular Heart Sounds: Present: S1 & S2 - Extremities Extremities: no ischemia, No edema - Abdominal General gastrointestinal: soft, non-tender, non-distended, normal bowel sounds - Integumentary Integumentary: Present: clear, warm - Psychiatric Psychiatric: appropriate mood/affect, cooperative - Neurologic Neurologic: CNII-XII intact, moves all extremities HEART Score - HEART Score Troponin: Troponin T 0.018 ng/mL (0.00-0.029) 12/21/21 15:05 Results - Labs CBC & Chem 7: 12/21/21 15:05 12/23/21 05:09 Labs: Laboratory Last Values WBC 9.3 K/mm3 (4.5-11.0) 12/21/21 15:05 RBC 3.62 M/mm3 (3.65-5.03) L 12/21/21 15:05 Hgb 10.1 gm/dl (11.8-15.2) L 12/21/21 15:05 Hct 30.9 % (35.5-45.6) L 12/21/21 15:05 MCV 85 fl (84-94) 12/21/21 15:05 MCH 28 pg (28-32) 12/21/21 15:05 MCHC 33 % (32-34) 12/21/21 15:05 RDW 18.1 % (13.2-15.2) H 12/21/21 15:05 Plt Count 239 K/mm3 (140-440) 12/21/21 15:05 Lymph % (Auto) 8.9 % (13.4-35.0) L 12/21/21 15:05 Cecil % (Auto) 8.9 % (0.0-7.3) H 12/21/21 15:05 Eos % (Auto) 0.1 % (0.0-4.3) 12/21/21 15:05 Baso % (Auto) 0.4 % (0.0-1.8) 12/21/21 15:05 Lymph # (Auto) 0.8 K/mm3 (1.2-5.4) L 12/21/21 15:05 Cecil # (Auto) 0.8 K/mm3 (0.0-0.8) 12/21/21 15:05 Eos # (Auto) 0.0 K/mm3 (0.0-0.4) 12/21/21 15:05 Baso # (Auto) 0.0 K/mm3 (0.0-0.1) 12/21/21 15:05 Seg Neutrophils % 81.7 % (40.0-70.0) H 12/21/21 15:05 Seg Neutrophils # 7.6 K/mm3 (1.8-7.7) 12/21/21 15:05 PT 19.1 Sec. (12.2-14.9) H 12/21/21 15:05 INR 1.42 (0.87-1.13) H 12/21/21 15:05 APTT 42.4 Sec. (24.2-36.6) H 12/21/21 15:05 ABG pH 7.463 pH Units (7.350-7.450) H 12/22/21 06:05 ABG pCO2 33.8 mm Hg 12/22/21 06:05 ABG pO2 130.7 mm Hg (80.0-90.0) H 12/22/21 06:05 ABG HCO3 23.7 mmol/L (20.0-26.0) 12/22/21 06:05 ABG O2 Saturation 98.7 % (95.0-99.0) 12/22/21 06:05 ABG O2 Content 12.7 (0.0-44) 12/22/21 06:05 ABG Base Excess 0.2 mmol/L (-2.0-3.0) 12/22/21 06:05 ABG Hemoglobin 9.2 gm/dl (14.0-18.0) L 12/22/21 06:05 ABG Carboxyhemoglobin 2.0 % (0.0-5.0) 12/22/21 06:05 ABG Methemoglobin 0.5 % (0.0-1.5) 12/22/21 06:05 Oxyhemoglobin 96.2 % (95.0-99.0) 12/22/21 06:05 FiO2 32 % 12/22/21 06:05 Sodium 139 mmol/L (137-145) 12/23/21 05:09 Potassium 3.8 mmol/L (3.6-5.0) 12/23/21 05:09 Chloride 101.5 mmol/L (98-107) 12/23/21 05:09 Carbon Dioxide 26 mmol/L (22-30) 12/23/21 05:09 Anion Gap 15 mmol/L 12/23/21 05:09 BUN 26 mg/dL (9-20) H 12/23/21 05:09 Creatinine 1.1 mg/dL (0.8-1.3) 12/23/21 05:09 Estimated GFR > 60 ml/min 12/23/21 05:09 BUN/Creatinine Ratio 24 % 12/23/21 05:09 Glucose 89 mg/dL (75-100) 12/23/21 05:09 POC Glucose 81 mg/dL (70-105) 12/24/21 07:52 Calcium 9.0 mg/dL (8.4-10.2) 12/23/21 05:09 Magnesium 2.00 mg/dL (1.7-2.3) 12/21/21 19:14 Total Bilirubin 0.60 mg/dL (0.1-1.2) 12/21/21 15:05 AST 32 units/L (5-40) 12/21/21 15:05 ALT 16 units/L (7-56) 12/21/21 15:05 Alkaline Phosphatase 52 units/L (35-129) 12/21/21 15:05 Troponin T 0.018 ng/mL (0.00-0.029) 12/21/21 15:05 NT-Pro-B Natriuret Pep 5113 pg/mL (0-900) H 12/21/21 15:05 Total Protein 6.1 g/dL (6.3-8.2) L 12/21/21 15:05 Albumin 3.7 g/dL (3.9-5) L 12/21/21 15:05 Albumin/Globulin Ratio 1.5 % 12/21/21 15:05 Lipase 24 units/L (13-60) 12/21/21 15:05 TSH 2.690 mlU/mL (0.270-4.200) 12/21/21 19:14 Free T4 1.84 ng/dL (0.76-1.46) H 12/21/21 19:14 Urine Color Yellow (Yellow) 12/21/21 15:06 Urine Turbidity Slightly-cloudy (Clear) 12/21/21 15:06 Specific [place] (Man) 1.010 (1.003-1.030) 12/21/21 15:06 Ur Protein (Man) Negative mg/dL (Negative) 12/21/21 15:06 Ur Ketones (Man) Negative (Negative) 12/21/21 15:06 Ur Nitrite (Man) Negative (Negative) 12/21/21 15:06 Urine Bilirubin (Man) Negative (Negative) 12/21/21 15:06 Urine Ictotest Not Reportable 12/21/21 15:06 Leukocyte Esterase (Man) Moderate (Negative) 12/21/21 15:06 Urine WBC (Auto) 46.0 /HPF (0.0-6.0) H 12/21/21 15:06 Urine RBC (Auto) 3.0 /HPF (0.0-6.0) 12/21/21 15:06 Urine Bacteria (Auto) 3+ /HPF (Negative) 12/21/21 15:06 Urine RBC (Manual) Negative (Negative) 12/21/21 15:06 Urine Mucus Few /HPF 12/21/21 15:06 Microbiology: Microbiology 12/21/21 15:06 Urine,Clean Catch Urine Culture - Final Klebsiella Pneumoniae Solomon/IV: Voiding Method Urinal Active Medications - Current Medications Current Medications: Generic Name Dose Route Start Last Admin Trade Name Freq PRN Reason Stop Dose Admin Acetaminophen 650 mg 12/21/21 18:52 12/22/21 19:29 Acetaminophen 325 Mg Tab PO 650 mg Q4H PRN Administration Pain MILD(1-3)/Fever >100.5/MOREAU Albuterol 2.5 mg 12/22/21 00:45 12/23/21 22:17 Albuterol 2.5 Mg/3 Ml Nebu IH Not Given TIDRT VENITA Apixaban 5 mg 12/23/21 12:00 12/23/21 21:35 Apixaban 5 Mg Tab PO 5 mg Q12HR [facility] Administration Protocol Atorvastatin Calcium 10 mg 12/23/21 22:00 12/23/21 21:36 Atorvastatin 10 Mg Tab PO 10 mg QHS [facility] Administration Cholecalciferol 2,000 unit 12/24/21 10:00 Cholecalciferol (Vit D3) 1000 Unit (25 Mcg) Tab PO DAILY [facility] Digoxin 0.125 mg 12/23/21 11:00 12/23/21 11:12 Digoxin 0.125 Mg Tab PO 0.125 mg DAILY [facility] Administration Ferrous Sulfate 325 mg 12/23/21 11:00 12/23/21 11:13 Ferrous Sulfate 325 Mg Tab PO 325 mg DAILY [facility] Administration Fluoxetine HCl 20 mg 12/23/21 11:00 12/23/21 11:12 Fluoxetine 20 Mg Cap PO 20 mg DAILY VENITA Administration Furosemide 40 mg 12/23/21 14:00 12/23/21 21:36 Furosemide 40 Mg Tab PO 40 mg TID [facility] Administration Guaifenesin 10 ml 12/21/21 23:23 12/23/21 23:09 Guaifenesin Dm 200/20 Mg Oral Liqd 10 Ml PO 10 ml Q6H PRN Administration Cough Guaifenesin 600 mg 12/23/21 22:00 12/23/21 21:35 Guaifenesin Er 600 Mg Tab PO 600 mg BID VENITA Administration Hydromorphone HCl 0.5 mg 12/21/21 18:52 Hydromorphone 0.5 Mg/0.5 Ml Inj IV Q23H PRN Pain , Severe (7-10) Insulin Human Lispro 0 unit 12/22/21 00:30 12/23/21 21:36 Insulin Lispro 100 Unit/Ml SUB-Q Not Given ACHS [facility] Protocol Levothyroxine Sodium 150 mcg 12/24/21 06:00 12/24/21 05:49 Levothyroxine 150 Mcg Tab PO 150 mcg DAILY@0600 VENITA Administration Lisinopril 2.5 mg 12/22/21 16:00 12/23/21 09:41 Lisinopril 5 Mg Tab PO 2.5 mg QDAY [facility] Administration Methocarbamol 750 mg 12/23/21 22:00 12/23/21 21:36 Methocarbamol 750 Mg Tab PO 750 mg HS VENITA Administration Miscellaneous Medication 135 mg 12/23/21 10:45 Fenofibric Acid (Choline) [Trilipix] PO QDAY VENITA Ondansetron HCl 4 mg 12/21/21 18:52 Ondansetron 4 Mg/2 Ml Inj IV Q8H PRN Nausea And Vomiting Oxycodone/Acetaminophen 1 tab 12/21/21 18:52 Oxycodone /Acetaminophen 5-325mg Tab PO Q16H PRN Pain, Moderate (4-6) Pantoprazole Sodium 40 mg 12/23/21 11:30 12/23/21 11:13 Pantoprazole 40 Mg Tab PO 40 mg DAILY VENITA Administration Potassium Chloride 20 meq 12/23/21 11:30 12/23/21 11:12 Potassium Chloride Er 20 Meq Tab PO 20 meq QDAY VENITA Administration Sodium Chloride 10 ml 12/21/21 22:00 12/23/21 21:37 Sodium Chloride 0.9% 10 Ml Flush Syringe IV 10 ml BID VENITA Administration Sodium Chloride 10 ml 12/21/21 18:52 Sodium Chloride 0.9% 10 Ml Flush Syringe IV PRN PRN LINE FLUSH Tamsulosin HCl 0.4 mg 12/23/21 11:00 12/23/21 11:12 Tamsulosin 0.4 Mg Cap PO 0.4 mg QDAY VENITA Administration Trazodone HCl 100 mg 12/23/21 22:00 12/23/21 21:35 Trazodone 100 Mg Tab PO 100 mg QHS VENITA Administration Trazodone HCl 50 mg 12/23/21 22:00 12/23/21 21:35 Trazodone 50 Mg Tab PO 50 mg QHS VENITA Administration
[2021-12-24] MEDS: ALBUTEROL 2.5 MG/3 ML NEBU IH SCH ×2 (09:20→15:57)
--- NOTE | 2021-12-24 09:27 | Electrocardiograph Report ---
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
[2021-12-24] MEDS ORDERED: VITAMIN D3 2000 UNIT PO SCH (10:00)
[2021-12-24] MEDS: LISINOPRIL 5 MG TAB PO SCH (10:15)
[2021-12-24] MEDS: CHOLECALCIFEROL (VIT D3) 1000 UNIT (25 mcg) TAB PO SCH (10:15)
[2021-12-24] MEDS: DIGOXIN 0.125 MG TAB PO SCH (10:19)
[2021-12-24] MEDS: FERROUS SULFATE 325 MG TAB PO SCH (10:19)
[2021-12-24] MEDS: APIXABAN 5 MG TAB PO SCH ×2 (10:19→22:33)
[2021-12-24] MEDS: POTASSIUM CHLORIDE ER 20 MEQ TAB PO SCH (10:19)
[2021-12-24] MEDS: FLUoxetine 20 MG CAP PO SCH (10:20)
[2021-12-24] MEDS: TAMSULOSIN 0.4 MG CAP PO SCH (10:20)
[2021-12-24] MEDS: PANTOPRAZOLE 40 MG TAB PO SCH (10:20)
[2021-12-24] MEDS: guaiFENesin ER 600 MG TAB PO SCH ×2 (10:20→22:32)
[2021-12-24] MEDS: FUROSEMIDE 40 MG TAB PO SCH ×2 (10:23→20:09)
--- NOTE | 2021-12-24 13:42 | XRay Report ---
CHEST 2 VIEWS INDICATION: Left pleural effusion. COMPARISON: 12/21/2021 FINDINGS: Support devices: Pacemaker unchanged. Heart: Stable status post previous median sternotomy. Lungs/Pleura: Mild pleural fluid left greater than right remains. Left-sided opacity has improved a nd is mild. IMPRESSION: 1. Small basilar effusions left greater than right. 2. Mild improving left opacity. Signer Name: Gregory Zepeda MD Signed: 12/24/2021 1:37 PM Workstation Name: [id number]
--- NOTE | 2021-12-24 14:08 | Progress Note ---
Assessment and Plan - Patient Problems (1) CHF (congestive heart failure) Current Visit: Yes Status: Acute Qualifiers: Heart failure type: systolic Heart failure chronicity: acute on chronic Qualified Code(s): I50.23 - Acute on chronic systolic (congestive) heart failure Plan to address problem: The patient is currently not responding to oral Lasix, I will switch his IV 40 mg twice daily, continue aggressive diuresis, maintain optimal negative fluid balance. Strict reduction of dietary salt intake. After treatment of fluid overload, and the patient will be referred to his primary outpatient deicer inspector pneumatic, to determine and recommend strategies for definitive management of his chronic valvular regurgitant lesions. Subjective Date of service: 12/24/21 Principal diagnosis: Congestive heart failure Interval history: Patient appears to be in decompensated heart failure, with shortness of breath, orthopnea, cough, and at least 2+ bilateral lower extremity edema. Objective Vital Signs Temp Pulse Pulse Resp Resp BP Pulse Ox 12/24/21 10:19 60 122/55 12/24/21 10:15 60 122/55 12/24/21 07:45 63 12/24/21 05:00 67 12/24/21 04:36 97.6 F 60 19 114/53 95 12/24/21 00:59 98.2 F 61 18 112/51 92 12/23/21 22:18 98 12/23/21 22:00 20 96 12/23/21 21:00 63 12/23/21 20:23 98.3 F 63 20 112/49 99 12/23/21 17:29 98.3 F 56 L 124/42 99 12/23/21 15:05 68 20 88 - Physical Examination General: No Apparent Distress HEENT: Positive: PERRL Neck: Positive: neck supple Cardiac: Positive: Irregularly Regular Lungs: Positive: Decreased Breath Sounds Neuro: Positive: Grossly Intact Abdomen: Positive: Soft Skin: Positive: Clear Extremities: Present: +2 Edema
[2021-12-24] MEDS: guaiFENesin DM 200/20 MG ORAL LIQD 10 ML PO PRN (16:30)
[2021-12-24] MEDS: FUROSEMIDE 40 MG/4 ML INJ IV SCH (17:12)
[2021-12-24] MEDS: traZODone 100 MG TAB PO SCH (22:32)
[2021-12-24] MEDS: traZODone 50 MG TAB PO SCH (22:33)
[2021-12-25] MEDS: guaiFENesin DM 200/20 MG ORAL LIQD 10 ML PO PRN (05:22)
[2021-12-25] MEDS: LEVOTHYROXINE 150 MCG TAB PO SCH (05:23)
[2021-12-25] MEDS: FUROSEMIDE 40 MG/4 ML INJ IV SCH ×2 (05:23→17:12)
[2021-12-25] MEDS: INSULIN LISPRO 100 UNIT/ML SUB-Q SCH ×4 (08:25→21:59)
[2021-12-25] MEDS: ALBUTEROL 2.5 MG/3 ML NEBU IH SCH ×4 (09:19→21:39)
[2021-12-25] MEDS: FLUoxetine 20 MG CAP PO SCH (10:20)
[2021-12-25] MEDS: DIGOXIN 0.125 MG TAB PO SCH (10:20)
[2021-12-25] MEDS: APIXABAN 5 MG TAB PO SCH ×2 (10:20→21:22)
[2021-12-25] MEDS: FERROUS SULFATE 325 MG TAB PO SCH (10:20)
[2021-12-25] MEDS: CHOLECALCIFEROL (VIT D3) 1000 UNIT (25 mcg) TAB PO SCH (10:21)
[2021-12-25] MEDS: TAMSULOSIN 0.4 MG CAP PO SCH (10:21)
[2021-12-25] MEDS: LISINOPRIL 5 MG TAB PO SCH (10:21)
[2021-12-25] MEDS: PANTOPRAZOLE 40 MG TAB PO SCH (10:21)
[2021-12-25] MEDS: guaiFENesin ER 600 MG TAB PO SCH ×2 (10:21→21:22)
[2021-12-25] MEDS: POTASSIUM CHLORIDE ER 20 MEQ TAB PO SCH (10:21)
--- NOTE | 2021-12-25 10:29 | Progress Note ---
Assessment and Plan - Patient Problems (1) CHF (congestive heart failure) Current Visit: Yes Status: Acute Qualifiers: Heart failure type: systolic Heart failure chronicity: acute on chronic Qualified Code(s): I50.23 - Acute on chronic systolic (congestive) heart failure Plan to address problem: Continue aggressive IV diuretics for management of his heart failure and fluid overload. Subjective Date of service: 12/25/21 Principal diagnosis: Congestive heart failure Interval history: Patient looks and feels better, shortness of breath and cough have improved following IV furosemide. Objective Vital Signs Temp Pulse Pulse Pulse Resp Resp BP 12/25/21 10:20 86 12/25/21 09:20 12/25/21 09:05 98.2 F 86 18 12/25/21 08:00 59 L 18 12/25/21 05:00 60 12/25/21 04:33 98.4 F 59 L 17 130/58 12/24/21 22:00 83 20 12/24/21 21:00 69 12/24/21 19:22 97.4 F L 60 18 130/57 12/24/21 17:45 98.2 F 62 20 12/24/21 15:57 69 20 12/24/21 15:56 12/24/21 13:58 83 20 BP Pulse Ox 12/25/21 10:20 12/25/21 09:20 96 12/25/21 09:05 103/79 12/25/21 08:00 12/25/21 05:00 12/25/21 04:33 99 12/24/21 22:00 100 12/24/21 21:00 12/24/21 19:22 99 12/24/21 17:45 129/48 94 12/24/21 15:57 12/24/21 15:56 96 12/24/21 13:58 96 - Physical Examination General: No Apparent Distress HEENT: Positive: PERRL Neck: Positive: neck supple Cardiac: Positive: Reg Rate and Rhythm Lungs: Positive: Decreased Breath Sounds Neuro: Positive: Grossly Intact Abdomen: Positive: Soft Skin: Positive: Clear Extremities: Present: +2 Edema
--- NOTE | 2021-12-25 12:46 | Discharge Summary ---
Providers - Providers Date of Admission: 12/21/21 18:12 Date of discharge: 12/25/21 Attending physician: ALAN CORREIA 12/21/21 18:54 Consult to Physician [CONS] Routine Comment: Consulting Provider: SAEID CHEATHAM Physician Instructions: Reason For Exam: chf Primary care physician: CAREER SERVICES REPRESENTATIVE Hospitalization Condition: Serious Disposition: 30 STILL A PATIENT Exam - Constitutional Vitals: Temp Pulse Resp BP Pulse Ox 98.2 F 86 18 103/79 96 12/25/21 09:05 12/25/21 10:20 12/25/21 09:05 12/25/21 09:05 12/25/21 10:00 Plan Follow up with: PRIMARY CAREMD [Primary Care Provider] - 3-5 Days
[2021-12-25] MEDS ORDERED: ALBUTEROL 8.5 GM MDI INHALATION IH PRN (16:07)
--- NOTE | 2021-12-25 16:09 | Progress Note ---
Assessment and Plan Assessment and plan: -- Acute hypoxemic respiratory failure Likely due to seasonal admission, supplemental oxygen, pulse oximetry, nebulizer therapy, noninvasive positive pressure ventilation, arterial blood gas to monitor. --Acute on chronic diastolic CHF (congestive heart failure) Strict I's/O, monitor urine output every shift, daily weight, afterload reduction, blood pressure control, cardiology team consulted, echocardiogram ordered and pending at time of admission, thyroid panel, magnesium level, supplemental oxygen, pulse oximetry. Cardiology consulted -- UTI (urinary tract infection) Urinalysis, IV antibiotic therapy. -- Recurrent left pleural effusion Diuresis, supplemental oxygen, pulse oximetry, pulmonary toilet. Repeat chest x-ray as clinically indicated. If no improvement with diuresis, would then need thoracentesis ;-- Acute hypoxemic respiratory failure Likely due to seasonal admission, supplemental oxygen, pulse oximetry, nebulizer therapy, noninvasive positive pressure ventilation, arterial blood gas to monitor. --Acute on chronic diastolic CHF (congestive heart failure) Strict I's/O, monitor urine output every shift, daily weight, afterload reduction, blood pressure control, cardiology team consulted, echocardiogram ordered and pending at time of admission, thyroid panel, magnesium level, supplemental oxygen, pulse oximetry. Cardiology consulted -- UTI (urinary tract infection) Urinalysis, IV antibiotic therapy. -- Recurrent left pleural effusion Diuresis, supplemental oxygen, pulse oximetry, pulmonary toilet. Repeat chest x-ray as clinically indicated. If no improvement with diuresis, consider thoracentesis Follow-up Chest x-ray 12/24/2021 small basilar effusions left greater than right, mild improving left opacity patient does not need Thoracentesis --Nonrheumatic mitral valve regurgitation He had an echo at [place] in October 2021 which showed moderate to severe MR and severe TR with severe pulmonary hypertension. Given his severe pulmonary hypertension he may or may not be a candidate for surgery. Will need to optimize his volume status. -- Nonrheumatic tricuspid (valve) insufficiency Tricuspid regurgitation is severe. Continue managing heart failure which may improve his severity. Per cardiology will need approach with CT surgery evaluation. The goal is to optimize his heart failure as to close to euvolemic and then refer him for heart team approach to evaluate and fix his mitral and tricuspid valve as outpatient. 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 -- Diabetes Consistent carbohydrate diet, Accu-Chek, insulin protocol, consistent carbohydrate diet, hypoglycemia protocol. --DVT Px, lovenox --12/22: cont diuresis, monitor ins/os, cardiology consulted will follow recommendation. cardiac diet. --12/23: clinically slightly improved, still has sig LE edema, follow CXR. if no improvement in pleural effusion need thoracentesis --12/24; will check ultrasound of the chest, and possible ultrasound-guided thoracentesis tomorrow if needed Closely monitor the patient and adjust the management as needed Plan of care reviewed with the patient and his nurse small basilar effusion left greater than right, mild improved left opacity --Nonrheumatic mitral valve regurgitation He had an echo at [place] in October 2021 which showed moderate to severe MR and severe TR with severe pulmonary hypertension. Given his severe pulmonary hypertension he may or may not be a candidate for surgery. Will need to optimize his volume status. -- Nonrheumatic tricuspid (valve) insufficiency Tricuspid regurgitation is severe. Continue managing heart failure which may improve his severity. Per cardiology will need approach with CT surgery evaluation. The goal is to optimize his heart failure as to close to euvolemic and then refer him for heart team approach to evaluate and fix his mitral and tricuspid valve as outpatient. 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 -- Diabetes Consistent carbohydrate diet, Accu-Chek, insulin protocol, consistent carbohydrate diet, hypoglycemia protocol. --DVT Px, lovenox --12/22: cont diuresis, monitor ins/os, cardiology consulted will follow recommendation. cardiac diet. --12/23: clinically slightly improved, still has sig LE edema, follow CXR. if no improvement in pleural effusion need thoracentesis --12/24; follow chest x-ray --12/25; Home O2 evaluation, optimize medications, possible discharge tomorrow back to assisted living Closely monitor the patient and adjust the management as needed Plan of care reviewed with the patient and his nurse Disposition; discharge home tomorrow back to assisted living facility if stable Follow-up Home O2 evaluation, home O2 set up if patient meets the criteria DC planning per case management History Interval history: I have seen and examined the patient at the bedside Patient's chart and medications reviewed No new events reported by the nursing Vital signs noted Patient complains of some cough and congestion And shortness of breath Hospitalist Physical - Constitutional Vitals: Temp Pulse Resp BP Pulse Ox 97.9 F 74 19 132/66 89 12/25/21 11:50 12/25/21 15:53 12/25/21 14:00 12/25/21 11:50 12/25/21 11:50 General appearance: Present: mild distress, well-nourished, obese - EENT Eyes: Present: PERRL, EOM intact - Neck Neck: Present: supple, normal ROM - Respiratory Respiratory effort: normal Respiratory: bilateral: diminished, rhonchi, negative: rales, wheezing - Cardiovascular Rhythm: regular Heart Sounds: Present: S1 & S2 - Extremities Extremities: no ischemia, No edema - Abdominal General gastrointestinal: soft, non-tender, non-distended, normal bowel sounds - Integumentary Integumentary: Present: clear, warm - Psychiatric Psychiatric: appropriate mood/affect, cooperative - Neurologic Neurologic: moves all extremities HEART Score - HEART Score Troponin: Troponin T 0.018 ng/mL (0.00-0.029) 12/21/21 15:05 Results - Labs CBC & Chem 7: 12/21/21 15:05 12/23/21 05:09 Labs: Laboratory Last Values WBC 9.3 K/mm3 (4.5-11.0) 12/21/21 15:05 RBC 3.62 M/mm3 (3.65-5.03) L 12/21/21 15:05 Hgb 10.1 gm/dl (11.8-15.2) L 12/21/21 15:05 Hct 30.9 % (35.5-45.6) L 12/21/21 15:05 MCV 85 fl (84-94) 12/21/21 15:05 MCH 28 pg (28-32) 12/21/21 15:05 MCHC 33 % (32-34) 12/21/21 15:05 RDW 18.1 % (13.2-15.2) H 12/21/21 15:05 Plt Count 239 K/mm3 (140-440) 12/21/21 15:05 Lymph % (Auto) 8.9 % (13.4-35.0) L 12/21/21 15:05 Lipscomb % (Auto) 8.9 % (0.0-7.3) H 12/21/21 15:05 Eos % (Auto) 0.1 % (0.0-4.3) 12/21/21 15:05 Baso % (Auto) 0.4 % (0.0-1.8) 12/21/21 15:05 Lymph # (Auto) 0.8 K/mm3 (1.2-5.4) L 12/21/21 15:05 Lipscomb # (Auto) 0.8 K/mm3 (0.0-0.8) 12/21/21 15:05 Eos # (Auto) 0.0 K/mm3 (0.0-0.4) 12/21/21 15:05 Baso # (Auto) 0.0 K/mm3 (0.0-0.1) 12/21/21 15:05 Seg Neutrophils % 81.7 % (40.0-70.0) H 12/21/21 15:05 Seg Neutrophils # 7.6 K/mm3 (1.8-7.7) 12/21/21 15:05 PT 19.1 Sec. (12.2-14.9) H 12/21/21 15:05 INR 1.42 (0.87-1.13) H 12/21/21 15:05 APTT 42.4 Sec. (24.2-36.6) H 12/21/21 15:05 ABG pH 7.463 pH Units (7.350-7.450) H 12/22/21 06:05 ABG pCO2 33.8 mm Hg 12/22/21 06:05 ABG pO2 130.7 mm Hg (80.0-90.0) H 12/22/21 06:05 ABG HCO3 23.7 mmol/L (20.0-26.0) 12/22/21 06:05 ABG O2 Saturation 98.7 % (95.0-99.0) 12/22/21 06:05 ABG O2 Content 12.7 (0.0-44) 12/22/21 06:05 ABG Base Excess 0.2 mmol/L (-2.0-3.0) 12/22/21 06:05 ABG Hemoglobin 9.2 gm/dl (14.0-18.0) L 12/22/21 06:05 ABG Carboxyhemoglobin 2.0 % (0.0-5.0) 12/22/21 06:05 ABG Methemoglobin 0.5 % (0.0-1.5) 12/22/21 06:05 Oxyhemoglobin 96.2 % (95.0-99.0) 12/22/21 06:05 FiO2 32 % 12/22/21 06:05 Sodium 139 mmol/L (137-145) 12/23/21 05:09 Potassium 3.8 mmol/L (3.6-5.0) 12/23/21 05:09 Chloride 101.5 mmol/L (98-107) 12/23/21 05:09 Carbon Dioxide 26 mmol/L (22-30) 12/23/21 05:09 Anion Gap 15 mmol/L 12/23/21 05:09 BUN 26 mg/dL (9-20) H 12/23/21 05:09 Creatinine 1.1 mg/dL (0.8-1.3) 12/23/21 05:09 Estimated GFR > 60 ml/min 12/23/21 05:09 BUN/Creatinine Ratio 24 % 12/23/21 05:09 Glucose 89 mg/dL (75-100) 12/23/21 05:09 POC Glucose 137 mg/dL (70-105) H 12/25/21 11:19 Calcium 9.0 mg/dL (8.4-10.2) 12/23/21 05:09 Magnesium 2.00 mg/dL (1.7-2.3) 12/21/21 19:14 Total Bilirubin 0.60 mg/dL (0.1-1.2) 12/21/21 15:05 AST 32 units/L (5-40) 12/21/21 15:05 ALT 16 units/L (7-56) 12/21/21 15:05 Alkaline Phosphatase 52 units/L (35-129) 12/21/21 15:05 Troponin T 0.018 ng/mL (0.00-0.029) 12/21/21 15:05 NT-Pro-B Natriuret Pep 5113 pg/mL (0-900) H 12/21/21 15:05 Total Protein 6.1 g/dL (6.3-8.2) L 12/21/21 15:05 Albumin 3.7 g/dL (3.9-5) L 12/21/21 15:05 Albumin/Globulin Ratio 1.5 % 12/21/21 15:05 Lipase 24 units/L (13-60) 12/21/21 15:05 TSH 2.690 mlU/mL (0.270-4.200) 12/21/21 19:14 Free T4 1.84 ng/dL (0.76-1.46) H 12/21/21 19:14 Urine Color Yellow (Yellow) 12/21/21 15:06 Urine Turbidity Slightly-cloudy (Clear) 12/21/21 15:06 Specific [place] (Man) 1.010 (1.003-1.030) 12/21/21 15:06 Ur Protein (Man) Negative mg/dL (Negative) 12/21/21 15:06 Ur Ketones (Man) Negative (Negative) 12/21/21 15:06 Ur Nitrite (Man) Negative (Negative) 12/21/21 15:06 Urine Bilirubin (Man) Negative (Negative) 12/21/21 15:06 Urine Ictotest Not Reportable 12/21/21 15:06 Leukocyte Esterase (Man) Moderate (Negative) 12/21/21 15:06 Urine WBC (Auto) 46.0 /HPF (0.0-6.0) H 12/21/21 15:06 Urine RBC (Auto) 3.0 /HPF (0.0-6.0) 12/21/21 15:06 Urine Bacteria (Auto) 3+ /HPF (Negative) 12/21/21 15:06 Urine RBC (Manual) Negative (Negative) 12/21/21 15:06 Urine Mucus Few /HPF 12/21/21 15:06 Solomon/IV: Voiding Method Toilet Active Medications - Current Medications Current Medications: Generic Name Dose Route Start Last Admin Trade Name Freq PRN Reason Stop Dose Admin Acetaminophen 650 mg 12/21/21 18:52 12/22/21 19:29 Acetaminophen 325 Mg Tab PO 650 mg Q4H PRN Administration Pain MILD(1-3)/Fever >100.5/MOREAU Albuterol 2.5 mg 12/22/21 00:45 12/25/21 14:27 Albuterol 2.5 Mg/3 Ml Nebu IH 2.5 mg TIDRT VENITA Administration Albuterol 2 puff 12/25/21 16:07 Albuterol 8.5 Gm Mdi Inhalation IH Q6HRT PRN Shortness Of Breath Apixaban 5 mg 12/23/21 12:00 12/25/21 10:20 Apixaban 5 Mg Tab PO 5 mg Q12HR VENITA Administration Protocol Atorvastatin Calcium 10 mg 12/23/21 22:00 12/24/21 22:32 Atorvastatin 10 Mg Tab PO 10 mg QHS VENITA Administration Cefuroxime Axetil 500 mg 12/25/21 14:00 12/25/21 14:14 Cefuroxime 250 Mg Tab PO 500 mg Q12HR VENITA Administration Cetirizine HCl 10 mg 12/26/21 10:00 Cetirizine 10 Mg Tab PO QDAY VENITA Cetirizine HCl 10 mg 12/25/21 16:08 Cetirizine 10 Mg Tab PO 12/25/21 16:09 ONCE ONE Cholecalciferol 2,000 unit 12/24/21 10:00 12/25/21 10:21 Cholecalciferol (Vit D3) 1000 Unit (25 Mcg) Tab PO 2,000 unit DAILY VENITA Administration Digoxin 0.125 mg 12/23/21 11:00 12/25/21 10:20 Digoxin 0.125 Mg Tab PO 0.125 mg DAILY VENITA Administration Ferrous Sulfate 325 mg 12/23/21 11:00 12/25/21 10:20 Ferrous Sulfate 325 Mg Tab PO 325 mg DAILY VENITA Administration Fluoxetine HCl 20 mg 12/23/21 11:00 12/25/21 10:20 Fluoxetine 20 Mg Cap PO 20 mg DAILY VENITA Administration Furosemide 40 mg 12/24/21 18:00 12/25/21 05:23 Furosemide 40 Mg/4 Ml Inj IV 40 mg 0600,1800 VENITA Administration Guaifenesin 10 ml 12/21/21 23:23 12/25/21 05:22 Guaifenesin Dm 200/20 Mg Oral Liqd 10 Ml PO 10 ml Q6H PRN Administration Cough Guaifenesin 600 mg 12/23/21 22:00 12/25/21 10:21 Guaifenesin Er 600 Mg Tab PO 600 mg BID VENITA Administration Hydromorphone HCl 0.5 mg 12/21/21 18:52 Hydromorphone 0.5 Mg/0.5 Ml Inj IV Q23H PRN Pain , Severe (7-10) Insulin Human Lispro 0 unit 12/22/21 00:30 12/25/21 12:25 Insulin Lispro 100 Unit/Ml SUB-Q Not Given ACHS [facility] Protocol Levothyroxine Sodium 150 mcg 12/24/21 06:00 12/25/21 05:23 Levothyroxine 150 Mcg Tab PO 150 mcg DAILY@0600 VENITA Administration Lisinopril 2.5 mg 12/22/21 16:00 12/25/21 10:21 Lisinopril 5 Mg Tab PO 2.5 mg QDAY VENITA Administration Methocarbamol 750 mg 12/23/21 22:00 12/24/21 22:32 Methocarbamol 750 Mg Tab PO 750 mg HS [facility] Administration Miscellaneous Medication 135 mg 12/23/21 10:45 Fenofibric Acid (Choline) [Trilipix] PO QDAY [facility] Ondansetron HCl 4 mg 12/21/21 18:52 Ondansetron 4 Mg/2 Ml Inj IV Q8H PRN Nausea And Vomiting Oxycodone/Acetaminophen 1 tab 12/21/21 18:52 Oxycodone /Acetaminophen 5-325mg Tab PO Q16H PRN Pain, Moderate (4-6) Pantoprazole Sodium 40 mg 12/23/21 11:30 12/25/21 10:21 Pantoprazole 40 Mg Tab PO 40 mg DAILY VENITA Administration Potassium Chloride 20 meq 12/23/21 11:30 12/25/21 10:21 Potassium Chloride Er 20 Meq Tab PO 20 meq QDAY VENITA Administration Sodium Chloride 10 ml 12/21/21 22:00 12/25/21 10:21 Sodium Chloride 0.9% 10 Ml Flush Syringe IV 10 ml BID VENITA Administration Sodium Chloride 10 ml 12/21/21 18:52 Sodium Chloride 0.9% 10 Ml Flush Syringe IV PRN PRN LINE FLUSH Tamsulosin HCl 0.4 mg 12/23/21 11:00 12/25/21 10:21 Tamsulosin 0.4 Mg Cap PO 0.4 mg QDAY VENITA Administration Trazodone HCl 100 mg 12/23/21 22:00 12/24/21 22:32 Trazodone 100 Mg Tab PO 100 mg QHS VENITA Administration Trazodone HCl 50 mg 12/23/21 22:00 12/24/21 22:33 Trazodone 50 Mg Tab PO 50 mg QHS VENITA Administration
[2021-12-25] MEDS ORDERED: CETIRIZINE 10 MG TAB PO SCH (17:00)
[2021-12-25] MEDS ORDERED: ALBUTEROL 2.5 MG/3 ML NEBU IH PRN (20:00)
[2021-12-25] MEDS: traZODone 50 MG TAB PO SCH (21:22)
[2021-12-25] MEDS: traZODone 100 MG TAB PO SCH (21:22)
[2021-12-25] MEDS: ACETAMINOPHEN 325 MG TAB PO PRN (21:23)
[2021-12-26] MEDS: FUROSEMIDE 40 MG/4 ML INJ IV SCH (05:31)
[2021-12-26] MEDS: LEVOTHYROXINE 150 MCG TAB PO SCH (05:31)
[2021-12-26] MEDS: INSULIN LISPRO 100 UNIT/ML SUB-Q SCH ×3 (08:34→17:35)
[2021-12-26] MEDS: guaiFENesin DM 200/20 MG ORAL LIQD 10 ML PO PRN (09:45)
[2021-12-26] MEDS: APIXABAN 5 MG TAB PO SCH (09:45)
[2021-12-26] MEDS: FERROUS SULFATE 325 MG TAB PO SCH (09:45)
[2021-12-26] MEDS: guaiFENesin ER 600 MG TAB PO SCH (09:45)
[2021-12-26] MEDS: TAMSULOSIN 0.4 MG CAP PO SCH (09:45)
[2021-12-26] MEDS: FLUoxetine 20 MG CAP PO SCH (09:46)
[2021-12-26] MEDS: POTASSIUM CHLORIDE ER 20 MEQ TAB PO SCH (09:46)
[2021-12-26] MEDS: CHOLECALCIFEROL (VIT D3) 1000 UNIT (25 mcg) TAB PO SCH (09:47)
[2021-12-26] MEDS: PANTOPRAZOLE 40 MG TAB PO SCH (09:47)
[2021-12-26] MEDS: LISINOPRIL 5 MG TAB PO SCH (09:47)
[2021-12-26] MEDS: DIGOXIN 0.125 MG TAB PO SCH (09:51)
[2021-12-26] MEDS ORDERED: CETIRIZINE 10 MG TAB PO SCH (10:00)
--- NOTE | 2021-12-26 12:52 | Progress Note ---
Assessment and Plan - Patient Problems (1) CHF (congestive heart failure) Current Visit: Yes Status: Acute Qualifiers: Heart failure type: systolic Heart failure chronicity: acute on chronic Qualified Code(s): I50.23 - Acute on chronic systolic (congestive) heart failure Plan to address problem: Continue aggressive IV diuretics for management of his heart failure and fluid overload. Following optimal treatment of fluid overload, who discharged to follow-up with his primary tank car reconditioner for elective assessment of advanced therapies for his valvular regurgitant lesions. Subjective Date of service: 12/26/21 Principal diagnosis: Congestive heart failure Interval history: Patient is resting comfortably supine in bed, no new cardiac complaints, no new cardiac events reported. Objective Vital Signs Temp Pulse Pulse Resp Resp BP BP 12/26/21 09:51 58 L 123/42 12/26/21 09:47 59 L 123/42 12/26/21 07:34 97.8 F 60 121/51 12/26/21 03:35 97.4 F L 60 17 112/45 12/25/21 23:09 97.4 F L 59 L 18 116/38 12/25/21 22:00 12/25/21 21:45 12/25/21 21:41 60 20 12/25/21 19:30 97.8 F 60 18 98/39 12/25/21 19:00 12/25/21 15:53 74 12/25/21 15:50 98.0 F 69 18 134/66 12/25/21 14:00 61 19 Pulse Ox 12/26/21 09:51 12/26/21 09:47 12/26/21 07:34 95 12/26/21 03:35 100 12/25/21 23:09 93 12/25/21 22:00 96 12/25/21 21:45 94 12/25/21 21:41 12/25/21 19:30 93 12/25/21 19:00 96 12/25/21 15:53 12/25/21 15:50 89 12/25/21 14:00 - Physical Examination General: No Apparent Distress HEENT: Positive: PERRL Neck: Positive: neck supple Cardiac: Positive: Reg Rate and Rhythm, Systolic Murmur Lungs: Positive: Decreased Breath Sounds Neuro: Positive: Grossly Intact Abdomen: Positive: Soft Skin: Positive: Clear Extremities: Present: +1 Edema
--- NOTE | 2021-12-26 13:26 | Discharge Summary ---
Providers - Providers Date of Admission: 12/21/21 18:12 Date of discharge: 12/26/21 Attending physician: ALAN CORREIA 12/21/21 18:54 Consult to Physician [CONS] Routine Comment: Consulting Provider: SAEID CHEATHAM Physician Instructions: Reason For Exam: chf Primary care physician: CHIEF PROJECTIONIST Hospitalization Condition: Serious Hospital course: -- Acute hypoxemic respiratory failure Likely due to seasonal admission, supplemental oxygen, pulse oximetry, nebulizer therapy, noninvasive positive pressure ventilation, arterial blood gas to monitor. --Acute on chronic diastolic CHF (congestive heart failure) Strict I's/O, monitor urine output every shift, daily weight, afterload reduction, blood pressure control, cardiology team consulted, echocardiogram ordered and pending at time of admission, thyroid panel, magnesium level, supplemental oxygen, pulse oximetry. Cardiology consulted -- UTI (urinary tract infection) Urinalysis, IV antibiotic therapy. -- Recurrent left pleural effusion Diuresis, supplemental oxygen, pulse oximetry, pulmonary toilet. Repeat chest x-ray as clinically indicated. If no improvement with diuresis, would then need thoracentesisAcute hypoxic respiratory failure resolved --Nonrheumatic mitral valve regurgitation He had an echo at [facility] in October 2021 which showed moderate to severe MR and severe TR with severe pulmonary hypertension. Given his severe pulmonary hypertension he may or may not be a candidate for surgery. Will need to optimize his volume status. Tricuspid regurgitation is severe. Continue managing heart failure which may improve his severity. Per cardiology will need approach with CT surgery evaluation. The goal is to optimize his heart failure as to close to euvolemic and then refer him for heart team approach to evaluate and fix his mitral and tricuspid valve as outpatient. 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 -- Diabetes Consistent carbohydrate diet, Accu-Chek, insulin protocol, consistent carbohydrate diet, hypoglycemia protocol. --DVT Px, lovenox -- Obesity; BMI 30.5 Patient is hemodynamically and clinically stable at discharge to assisted living facility Disposition: 30 STILL A PATIENT Final Discharge Diagnosis (Prints w/discharge instructions): Acute hypoxic respiratory failure resolved. Acute on chronic diastolic congestive heart failure. Urinary tract infection. Recurrent left pleural effusion/improved very minimal fluid. Nonrheumatic mitral valve regurgitation. Nonrheumatic tricuspid regurgitation. Pulmonary hypertension. Essential hypertension. Type 2 diabetes mellitus. Obesity BMI 30.5 Exam - Constitutional Vitals: Temp Pulse Resp BP Pulse Ox 97.8 F 58 L 17 123/42 95 12/26/21 07:34 12/26/21 09:51 12/26/21 03:35 12/26/21 09:51 12/26/21 07:34 Plan Additional Instructions: If you have worsening symptoms contact MD or go to the nearest emergency room as needed. Low-salt diet, fluid restriction to 1 L a day. Strongly advised to comply with medications, diet, follow-up visits. Advised to follow-up with your private cigar packer and grader per schedule. You may need to see private cardiothoracic surgeon[if your cigar packer and grader recommends]. Advised to follow-up with your private MD in 5 to 7 days or per schedule Follow up with: PRIMARY CARE,MD [Primary Care Provider] - 3-5 Days Prescriptions: Cefuroxime Axetil [Cefuroxime] 500 mg PO BID #10 guaiFENesin ER [Mucinex ER] 600 mg PO BID #30 tablet Cetirizine HCl [ZyrTEC 10mg cap] 10 mg PO DAILY PRN #14 cap PRN Reason: Congestion
[2021-12-26] MEDS: ALBUTEROL 2.5 MG/3 ML NEBU IH SCH (14:59)
[2021-12-26 16:31] VITALS: BP 132/65
== END 2021-12-26 17:30 | disposition home or self-care (01) | DRG 291 ==
LOC: ED 12:26 → 4A 18:12
PROVIDERS: ADMIT Internal Medicine; ATTEND Internal Medicine
PROC: 5A09357 Assistance with Respiratory Ventilation, Less than 24 Consecutive Hours, Continuous Positive Airway Pressure (ICD-10-PCS; principal; 2021-12-21)
DX: I11.0 Hypertensive heart disease with heart failure (principal); I50.33 Acute on chronic diastolic (congestive) heart failure; J96.01 Acute respiratory failure with hypoxia; N39.0 Urinary tract infection, site not specified; I48.91 Unspecified atrial fibrillation; I34.0 Nonrheumatic mitral (valve) insufficiency; I36.1 Nonrheumatic tricuspid (valve) insufficiency; E66.9 Obesity, unspecified; I25.10 Atherosclerotic heart disease of native coronary artery without angina pectoris; I27.20 Pulmonary hypertension, unspecified; J44.9 Chronic obstructive pulmonary disease, unspecified; D64.9 Anemia, unspecified; Z83.3 Family history of diabetes mellitus; Z82.49 Family history of ischemic heart disease and other diseases of the circulatory system; Z68.30 Body mass index [BMI] 30.0-30.9, adult
CPT/HCPCS: 36415; 36600; 71045; 71046; 80048; 80053; 81001; 82803; 82962; 83690; 83735; 83880; 84439; 84443; 84484; 85025; 85610; 85730; 87076; 87086; 87186; 93005; 93306; 94640; 94644; 94760; 96374; 96376; 99285; G0378; Q9967; C8929; J0696; J1815; J1940; J2930